=== PATIENT | female | born 1940 | race Caucasian/White ===

== ENCOUNTER 2016-10-28 13:59 | Emergency (ER) | payer OTHER ==
[~2016-10-28] VITALS: Ht 157.5 cm; Wt 72.7 kg
[~2016-10-28 13:59] MED LIST: GABA-529 PO; LEVO25TA9 PO; SIMV5TAB6 PO
[2016-10-28] MEDS ORDERED: NITR.4 SL (14:32)
[2016-10-28] MEDS ORDERED: BUPR75 PO (14:32)
[2016-10-28] MEDS ORDERED: TRAM50TA4 PO (14:32)
[2016-10-28] MEDS ORDERED: QUET25TA PO (14:32)
[2016-10-28] MEDS ORDERED: LEVO112T4 PO (14:32)
[2016-10-28] MEDS ORDERED: PREMC VG (14:32)
[2016-10-28] MEDS ORDERED: GABA-531 PO (14:32)
[2016-10-28] MEDS ORDERED: NIFE30TA98 PO (14:32)
[2016-10-28] MEDS ORDERED: RASA0.5T PO (14:32)
[2016-10-28] MEDS ORDERED: MAGOX PO (14:32)
[2016-10-28] MEDS ORDERED: NYST15PO3 TP (14:32)
[2016-10-28] MEDS ORDERED: PANT40TA25 PO (14:32)
[2016-10-28] MEDS ORDERED: LOVA20 PO (14:32)
[2016-10-28] MEDS ORDERED: HYDR-3965 PO (14:32)
[2016-10-28] MEDS ORDERED: OXYB5XL PO (14:32)
[2016-10-28] MEDS ORDERED: [UNRECOGNIZED DRUG - CODE] PO (14:32)
[2016-10-28] MEDS ORDERED: DOCU250C91 PO (14:32)
[2016-10-28] MEDS ORDERED: MECL-111 PO (14:32)
[2016-10-28] MEDS ORDERED: RASA1TAB PO (14:35)
[2016-10-28] MEDS ORDERED: SODIUM CHLORIDE 0.9% 1,000 ML IV ONE (18:00)
[2016-10-28 18:02] LABS: BASOPHILS # (AUTO) 0.04 K/uL (0.00-0.20); BASOPHILS % (AUTO) 0.5 % (0.0-2.0); EOSINOPHILS # (AUTO) 0.13 K/uL (0.00-0.70); EOSINOPHILS % (AUTO) 1.59 % (1.0-6.0); HEMATOCRIT 36.6 % (36-46); HEMOGLOBIN 12.3 g/dL (12.0-16.0); LYMPHOCYTES # (AUTO) 2.3 K/uL (1.0-4.8); LYMPHOCYTES % (AUTO) 29.6 % (22.0-44.0); MEAN CORPUSCULAR HEMOGLOBIN 31.1 pg (26.0-34.0); MEAN CORPUSCULAR HGB CONC 33.5 G/dL (31.0-37.0); MEAN CORPUSCULAR VOLUME 93 fL (80-100); MONOCYTES # (AUTO) 1.3 K/uL (0.1-1.0); MONOCYTES % (AUTO) 16.8 % (2.0-9.0); NEUTROPHILS # (AUTO) 4.1 K/uL (1.8-7.7); NEUTROPHILS % (AUTO) 51.5 % (40.0-70.0); PLATELET COUNT (AUTO) 215 K/uL (150-450); RED BLOOD CELL COUNT(AUTO) 3.95 MIL/uL (4.00-5.20); RED CELL DISTRIBUTION WIDTH 16.3 % (11.5-14.5); WHITE BLOOD COUNT (AUTO) 7.9 K/uL (4.5-11.0)
[2016-10-28 18:38] LABS: ALANINE AMINOTRANSFERASE 10 U/L (12-78); ALBUMIN 3.4 g/dL (3.4-5.0); ANION GAP 9 mmol/L (8-16); ASPARTATE AMINOTRANSFERASE 26 U/L (15-37); BILIRUBIN,TOTAL 0.3 mg/dL (0.1-1.0); CALCIUM, TOTAL 9.4 mg/dL (8.8-10.5); CARBON DIOXIDE 30 mmol/L (22-29); CHLORIDE 102 mmol/L (98-107); CREATINE KINASE MB 1.3 ng/mL (0-5); CREATINE KINASE, TOTAL 133 U/L (26-192); CREATININE 1.35 mg/dL (0.60-1.30); GLOMERULAR FILTR. RATE CALC 38 mL/min (>60); POTASSIUM 3.5 mmol/L (3.5-5.1); SODIUM SERUM 141 mmol/L (136-145); TOTAL PROTEIN, SERUM 7.1 g/dL (6.4-8.2); UREA NITROGEN, BLOOD 21 mg/dL (7-18)
[2016-10-28 18:40] LABS: APPEARANCE,URINE CLEAR (CLEAR); GLUCOSE, URINE (UA) NEGATIVE (NEGATIVE); KETONES,URINE NEGATIVE (NEGATIVE); LEUKOCYTE ESTERASE ,URINE NEGATIVE (NEGATIVE); OCCULT BLOOD,URINE NEGATIVE (NEGATIVE); PH,URINE 7.5 (5.0-8.0); PROTEIN,URINE NEGATIVE (NEGATIVE)
[2016-10-28 18:42] LABS: ADD UA MICROSCOPIC NO
[2016-10-28] MEDS ORDERED: DEXTROSE 50%-WATER 25 GM/50 ML SYRINGE IVP ONE ×2 (18:42→18:45)
[2016-10-28 18:51] LABS: GLUCOSE,POINT OF CARE 260 MG/DL (70-110)
[2016-10-28 20:10] LABS: GLUCOSE,POINT OF CARE 102 MG/DL (70-110)
[2016-10-28] MEDS ORDERED: HYDROCODONE/ACETAMINOPHEN 5-325 MG TABLET PO ONE (20:15)
[2016-10-28 20:40] VITALS: BP 171/55
== END 2016-10-28 21:25 | disposition home or self-care (01) ==
LOC: EMS 14:02
DX: S09.90XA Unspecified injury of head, initial encounter (principal); I10 Essential (primary) hypertension; F03.90 Unspecified dementia, unspecified severity, without behavioral disturbance, psychotic disturbance, mood disturbance, and anxiety; E78.00 Pure hypercholesterolemia, unspecified; E03.9 Hypothyroidism, unspecified; W05.0XXA Fall from non-moving wheelchair, initial encounter; Y93.89 Activity, other specified; Y92.89 Other specified places as the place of occurrence of the external cause; Y99.8 Other external cause status
CPT/HCPCS: 70450; 82962; 93005; 96361; 96374; 99285

== ENCOUNTER 2017-03-03 12:52 | Emergency (ER) | payer OTHER ==
[~2017-03-03] VITALS: Ht 154.9 cm; Wt 59.1 kg
[~2017-03-03 12:52] MED LIST changes: +BUPR75 PO; +DOCU250C91 PO; -GABA-529 PO; +GABA-531 PO; +HYDR-3965 PO; +LEVO112T4 PO; -LEVO25TA9 PO; +LOVA20 PO; +MAGOX PO; +MECL-111 PO; +NIFE30TA98 PO; +NITR.4 SL; +NYST15PO3 TP; +OXYB5XL PO; +PANT40TA25 PO; +PREMC VG; +QUET25TA PO; +RASA1TAB PO; -SIMV5TAB6 PO; +TRAM50TA4 PO; +[UNRECOGNIZED DRUG - CODE] PO
[2017-03-03] MEDS ORDERED: CloNIDine HCL 0.2 MG TABLET PO ONE (16:15)
[2017-03-03] MEDS ORDERED: HYDROCODONE/ACETAMINOPHEN 5-325 MG TABLET PO ONE (18:30)
[2017-03-03 20:30] VITALS: BP 144/67
== END 2017-03-03 20:33 | disposition home or self-care (01) ==
LOC: EMS 12:53
DX: S01.01XA Laceration without foreign body of scalp, initial encounter (principal); I10 Essential (primary) hypertension; E03.9 Hypothyroidism, unspecified; E78.00 Pure hypercholesterolemia, unspecified; W18.39XA Other fall on same level, initial encounter; Y93.89 Activity, other specified; Y92.89 Other specified places as the place of occurrence of the external cause; Y99.8 Other external cause status
CPT/HCPCS: 12001; 70450; 72125; 99284